=== PATIENT | female | born 1990 | race African-American/Black ===

== ENCOUNTER 2016-11-05 08:20 | Emergency (ER) | payer SELFPAY ==
[~2016-11-05] VITALS: Ht 165.1 cm; Wt 48.1 kg
[2016-11-05] MEDS ORDERED: NKM (08:48)
[2016-11-05] MEDS ORDERED: Tubing IV Cassette IV ONE (08:54)
[2016-11-05] MEDS ORDERED: Ketorolac 30mg Inj IV ONE (09:00)
[2016-11-05] MEDS ORDERED: Morphine Sulfate 4mg/ml Inj IVP ONE (09:00)
[2016-11-05 10:09] VITALS: BP 170/87
[2016-11-05 10:12] VITALS: BP 129/80
[2016-11-05 10:21] LABS: MEAN CORPUSCULAR HEMOGLOBIN 23.2 PG (27.0-31.0); MEAN CORPUSCULAR HGB CONC 30.9 G/DL (32.0-36.0); MEAN CORPUSCULAR VOLUME 75 FL (80-99); MEAN PLATELET VOLUME 8.3 FL (6.5-10.1); PLATELET COUNT 206 K/UL (150-450); RED BLOOD COUNT 4.05 M/UL (4.20-5.40); RED CELL DISTRIBUTION WIDTH 16.2 % (11.6-14.8); WHITE BLOOD COUNT 13.3 K/UL (4.8-10.8)
[2016-11-05 10:29] LABS: ALANINE AMINOTRANSFERASE 12 U/L (3-33); ALBUMIN/GLOBULIN RATIO 1.6 (1.0-2.7); ANION GAP 20 (5-15); ASPARTATE AMINO TRANSFERASE 24 U/L (5-40); CALCIUM 8.4 mg/dL (8.6-10.2); CARBON DIOXIDE 19 mEQ/L (20-30); CHLORIDE 101 mEQ/L (98-107); CREATININE 0.7 mg/dL (0.5-0.9); GLOMERULAR FILTRATION RATE > 60 mL/min (>60); HEMOLYSIS 1; LIPASE 11 U/L (< 60); POTASSIUM 3.4 mEQ/L (3.4-4.9); SODIUM 140 mEQ/L (135-145); TOTAL PROTEIN 6.7 g/dL (6.6-8.7)
[2016-11-05 10:45] LABS: ANISOCYTOSIS 1+; BAND NEUTROPHILS % (MANUAL) 1 % (0-8); BASOPHILS % (MANUAL) 0 % (0-2); EOSINOPHILS % (MANUAL) 0 % (0-3); HYPOCHROMASIA 1+; LYMPHOCYTES % (MANUAL) 5 % (20-45); MICROCYTES 1+; NEUTROPHILS % (MANUAL) 91 % (45-75); PLATELET ESTIMATE ADEQUATE; PLATELET MORPHOLOGY NORMAL; TOTAL CELLS COUNTED 100
[2016-11-05 11:45] LABS: APPEARANCE,URINE CLEAR; KETONES,URINE 4+ (NEGATIVE); LEUKOCYTE ESTERASE ,URINE 1+ (NEGATIVE); NITRITE,URINE NEGATIVE (NEGATIVE); PH,URINE 7 (4.5-8.0); PROTEIN,URINE 2+ (NEGATIVE); UROBILINOGEN,URINE NORMAL MG/DL (0.0-1.0)
[2016-11-05 11:59] LABS: BACTERIA,URINE FEW /HPF; SQUAMOUS EPITHELIAL CELL,UR FEW /LPF (NONE/OCC)
[2016-11-05 12:00] VITALS: BP 119/74
[2016-11-05 12:00] LABS: MUCUS,URINE FEW /LPF (NONE/OCC)
[2016-11-05 13:23] VITALS: BP 119/74
--- NOTE | 2016-11-05 14:20 | Diagnostic Imaging Report ---
Indication:Lower abdominal and pelvic pain Technique: Grayscale and duplex Doppler imaging of the pelvis performed utilizing a transabdominal scan and endovaginal scan. Comparison: None Findings: Uterus is retroverted but appears normal measuring 7.2 x 4.7 x 4 cm. Endometrium is about 10 mm. Mild free fluid noted. Both ovaries appear normal with Doppler evidence of blood flow. Probable aspiration noted involving the left ovary. Few follicles are present. The right ovary is 3.4 x 3.2 x 1.6 cm. Left ovary 3.3 x 3.3 x 1.6 cm. Impression: Negative exam
--- NOTE | 2016-11-06 13:47 | Emergency Room Report ---
History of Present Illness General Chief Complaint: Abdominal Pain Source: Patient Present Illness HPI 25 YO F presents with 10/10 lower midline pelvic pain, non-radiating since last night. Pain is constant. No assoc fever/chills, nausea/vomiting, diarrhea or urinary complaints or vaginal bleeding or discharge. Patient doubts . States every month around time of menstrual cycle, has similar episodes. She is about 2-3 days away from start of next cycle. Didnt take any OTC meds at home for pain. Specific request made here for dilaudid. States has had ruptured ovarian cysts before. Allergies: Coded Allergies: No Known Allergies (Unverified , 11/05/16) Patient History Past Medical History: none Past Surgical History: none Pertinent Family History: none Social History: Denies: alcohol use, drug use, smoking Now: No - 10/08/16 Immunizations: UTD Reviewed Nursing Documentation: PMH: Agreed, PSxH: Agreed Nursing Documentation-PMH Past Medical History: No Stated History Review of Systems All Other Systems: negative except mentioned in HPI Physical Exam Vital Signs Date Time Temp Pulse Resp B/P Pulse Ox O2 Delivery O2 Flow Rate FiO2 11/05/16 08:43 98.1 82 16 100/60 99 Room Air Sp02 EP Interpretation: reviewed, normal General Appearance: normal inspection, well appearing, no apparent distress, alert, GCS 15, non-toxic, other - Very dramatic, writhing on stretcher Head: normocephalic, atraumatic Eyes: bilateral eye EOMI, bilateral eye PERRL ENT: normal ENT inspection, hearing grossly normal, normal voice Neck: normal inspection, full range of motion, supple, no bony tend Respiratory: normal inspection, lungs clear, normal breath sounds, no respiratory distress, no retraction, no wheezing Cardiovascular #1: regular rate, rhythm, no edema Gastrointestinal: normal inspection, normal bowel sounds, non tender, soft, no guarding, no hernia Genitourinary: no CVA tenderness, other - Mild suprapubic ttp on exam Musculoskeletal: normal inspection, back normal, normal range of motion, Marcos' s Sign negative Neurologic: normal inspection, alert, oriented x3, responsive, bi technical lead III-XII nml as tested, motor strength/tone normal, speech normal Psychiatric: normal inspection, judgement/insight normal, mood/affect normal Skin: normal inspection, normal color, no rash Medical Decision Making Diagnostic Impression: Primary Impression: Ovarian cyst rupture Additional Impression: Ovarian cyst Qualified Codes: N83.201 - Unspecified ovarian cyst, right side ER Course 25 YO F with severe suprapubic pain. VSS. Afebrile. Urine preg negative UA negative for infection H&H stable. Mild leukocytosis likely stress reaction from pain Verbal report from optical engineering technician indicates "mild amount of free fluid, likely cyst rupture." Patient feels much better s/p IV anaglesia, IVF Utox + for cocaine, MJ. Advised patient to refrain from illicit drug use in the future Advised OTC ibuprofen for menstrual cycle pain in the future PMD followup as needed DC home Last Vital Signs Date Time Temp Pulse Resp B/P Pulse Ox O2 Delivery O2 Flow Rate FiO2 11/05/16 13:23 98.0 70 16 119/74 100 Room Air Status: improved Disposition: HOME, SELF-CARE Condition: Improved Patient Instructions: Ovarian Cyst, [id number] LYNDSEY JOSÉ M.D. Nov 06, 2016 13:47
== END 2016-11-05 13:23 | disposition home or self-care (01) ==
LOC: EMR 08:45
DX: N83.209 Unspecified ovarian cyst, unspecified side (principal); N85.4 Malposition of uterus; D72.829 Elevated white blood cell count, unspecified; F14.90 Cocaine use, unspecified, uncomplicated; F12.90 Cannabis use, unspecified, uncomplicated
CPT/HCPCS: 36415; 76830; 76856; 80053; 80300; 81003; 81025; 83690; 85007; 85025; 96361; 96374; 96375; 99284; J1885; J2270; J2405

== ENCOUNTER 2018-01-15 15:51 | Emergency (ER) | payer OTHER ==
[~2018-01-15] VITALS: Ht 165.1 cm; Wt 63.5 kg
--- NOTE | 2018-01-15 15:23 | Emergency Room Report ---
History of Present Illness General Chief Complaint: Abdominal pain Present Illness HPI 25 yo female patient presents to ER BIB ambulance complaining of abdominal pain x4 hours. Reports sharp abdominal pain. Reports nausea and vomiting during this time, denies blood in emesis. Reports diarrhea during this time, denies blood in stool. Reports no contacts with similar symptoms. Reports no recent travel outside [place]. Denies hx of abdominal surgery. Denies fever, chest pain, SOB, rash. Denies dysuria, hematuria, vaginal discharge. Reports LMP 2 days ago, normal for her. Reports hx of ovarian cyst. Patient reports smoking marijuana prior to onset of symptoms. Allergies: Coded Allergies: No Known Allergies (Unverified , 11/05/16) Patient History Past Medical History: see triage record Reviewed Nursing Documentation: PMH: Agreed; PSxH: Agreed Review of Systems All Other Systems: negative except mentioned in HPI Physical Exam Vital Signs Date Time Temp Pulse Resp B/P (MAP) Pulse Ox O2 Delivery O2 Flow Rate FiO2 01/15/18 15:18 97.8 88 18 156/81 99 Room Air 97.9 Sp02 EP Interpretation: reviewed, normal General Appearance: well appearing, alert, GCS 15, non-toxic, mild distress Head: normocephalic, atraumatic Eyes: bilateral eye normal inspection, bilateral eye PERRL ENT: hearing grossly normal, normal pharynx, no angioedema, normal voice, uvula midline, moist mucus membranes Neck: full range of motion Respiratory: lungs clear, normal breath sounds, no rhonchi, no respiratory distress, no accessory muscle use, no wheezing, speaking full sentences Cardiovascular #1: regular rate, rhythm, no edema Gastrointestinal: soft, no mass, non-distended, guarding, rebound, tenderness Musculoskeletal: back normal, digits/nails normal, gait/station normal, normal range of motion, non-tender Neurologic: alert, oriented x3, responsive, motor strength/tone normal, sensory intact Psychiatric: mood/affect normal Skin: no rash Lymphatic: no adenopathy Medical Decision Making PA Attestation Dr. Irving is my supervising Physician whom patient management has been discussed with. Diagnostic Impression: Primary Impression: Vomiting and diarrhea ER Course Pt. presents to the ED c/o abdominal pain and vomiting. Ddx considered but are not limited to UTI, cholelithiasis, cholecystitis, pancreatitis, appendicitis, gastroenteritis.. Patient reports pressure with palpation and pain with removal of hand during abdominal exam. Begin abdominal pain workup. Provided patient with pain medication. Vital signs: are WNL, pt. is afebrile ORDERS: CBC, CMP, Lipase, UA, Urine , CT abdomen pelvis, Zofran, Pepcid and pain medication. ER COURSE: Labs unremarkable. consistent with previous visit to ER. Hgb 8.9, consistent with previous visit and hx of recent LMP, does not require intervention at this time. Lipase WNL Serum HCG <1 negative for , OK for CT. CT negative for acute disease. Copy of report provided to patient. Discussed results with patient. Patient requesting food and water during ER stay. Informed patient symptoms may be related to viral cause or smoking marijuana. Instructed patient to discontinue marijuana use. Patient reports mild relief of pain symptoms with pain medication. Patient provided with IV fluids. Patient observed drinking water without throwing up. Urine sample provided. Patient provided with topical capsaicin. Urine results show, negative nitrite, moderate epithelial cell, patient asx, UTI unlikely, will not treat for UTI with abx. Urine negative. Discuss results with patient. Patient resting comfortably in bed nontoxic appearing, speaking in full sentences, patient OK for discharge to home. Stay hydrated. DISCHARGE: Rx provided for Tylenol. At this time pt. is stable for d/c to home. Patient resting comfortably, in no acute distress, nontoxic appearing, talking without difficulty. Rx provided to patient. Patient to take medications as instructed Will provide with patient care instructions and any necessary prescriptions. Care plan and follow-up instructions provided. Patient instructed to follow-up with primary care provider in 3 - 5 days. Patient questions asked and answered. Patient reports understanding and agreement to treatment plan. ER precautions given. Patient instructed to return to ER immediately for any new or worsening of symptoms including but not limited to increasing SOB, persistent fever, worsening of pain symptoms, intractable vomiting, blood in stool, urine, and/or emesis. Labs Test 01/15/18 15:54 01/15/18 20:07 White Blood Count 7.2 K/UL (4.8-10.8) Red Blood Count 3.89 M/UL (4.20-5.40) Hemoglobin 8.9 G/DL (12.0-16.0) Hematocrit 28.2 % (37.0-47.0) Mean Corpuscular Volume 73 FL (80-99) Mean Corpuscular Hemoglobin 23.0 PG (27.0-31.0) Mean Corpuscular Hemoglobin Concent 31.6 G/DL (32.0-36.0) Red Cell Distribution Width 15.6 % (11.6-14.8) Platelet Count 242 K/UL (150-450) Mean Platelet Volume 8.3 FL (6.5-10.1) Neutrophils (%) (Auto) 68.4 % (45.0-75.0) Lymphocytes (%) (Auto) 18.7 % (20.0-45.0) Monocytes (%) (Auto) 11.5 % (1.0-10.0) Eosinophils (%) (Auto) 0.2 % (0.0-3.0) Basophils (%) (Auto) 1.3 % (0.0-2.0) Sodium Level 146 MMOL/L (136-145) Potassium Level 3.4 MMOL/L (3.5-5.1) Chloride Level 108 MMOL/L (98-107) Carbon Dioxide Level 21 MMOL/L (21-32) Anion Gap 18 mmol/L (5-15) Blood Urea Nitrogen 6 mg/dL (7-18) Creatinine 0.8 MG/DL (0.55-1.30) Estimat Glomerular Filtration Rate > 60 mL/min (>60) Glucose Level 115 MG/DL (74-106) Calcium Level 9.4 MG/DL (8.5-10.1) Total Bilirubin 0.7 MG/DL (0.2-1.0) Aspartate Amino Transf (AST/SGOT) 30 U/L (15-37) Alanine Aminotransferase (ALT/SGPT) 24 U/L (12-78) Alkaline Phosphatase 55 U/L (46-116) Total Protein 8.0 G/DL (6.4-8.2) Albumin 4.1 G/DL (3.4-5.0) Globulin 3.9 g/dL Albumin/Globulin Ratio 1.1 (1.0-2.7) Lipase 98 U/L (73-393) Human Chorionic Gonadotropin, Quant < 1 mIU/mL (1-6) Urine Color Pale yellow Urine Appearance Slightly cloudy Urine pH 9 (4.5-8.0) Urine Specific Sloan 1.010 (1.005-1.035) Urine Protein 2+ (NEGATIVE) Urine Glucose (UA) Negative (NEGATIVE) Urine Ketones 4+ (NEGATIVE) Urine Occult Blood Negative (NEGATIVE) Urine Nitrite Negative (NEGATIVE) Urine Bilirubin Negative (NEGATIVE) Urine Urobilinogen Normal MG/DL (0.0-1.0) Urine Leukocyte Esterase 1+ (NEGATIVE) Urine RBC 0-2 /HPF (0 - 2) Urine WBC 5-10 /HPF (0 - 2) Urine Squamous Epithelial Cells Moderate /LPF (NONE/OCC) Urine Amorphous Sediment Many /LPF (NONE) Urine Bacteria Few /HPF (NONE) Urine HCG, Qualitative Negative (NEGATIVE) CT/MRI/US Diagnostic Results CT/MRI/US Diagnostic Results : Imaging Test Ordered: CT abdomen pelvis Impression Via [facility] Liver, gallbladder, pancreas and spleen are unremarkable. No hydronephrosis or obstructive renal calculi. No evidence of bowel obstruction or pneumoperitoneum. Appendix appears to be partially visualized in the right lower quadrant-pelvis. No definite findings of acute appendicitis. Small amount of pelvic free fluid which is nonspecific. Disposition: HOME, SELF-CARE Condition: Stable Scripts Acetaminophen* (TYLENOL EXTRA STRENGTH*) 500 Mg Tablet 500 MG ORAL Q8H PRN for Prn Headache/Temp > 101, #30 TAB 0 Refills Prov: Chi Ellis 01/15/18 Patient Instructions: Cannabis Use Disorder, Cyclic Vomiting Syndrome, Pediatric, Diarrhea, Adult, [id number], Nausea and Vomiting, Adult, Easy-to- Read Additional Instructions: Followup with primary care provider in 3 -5 days. Avoid spicy foods, avoid dairy foods. Followup with primary care provider for elevated blood pressure reading. BRAT diet: bananas, rice, apple sauce, toast. Do not use marijuana. Take medications as directed. Patient questions asked and answered. ER precautions given, patient instructed to return to ER immediately for any new or worsening of symptoms. Chi Ellis Jan 15, 2018 15:23
[2018-01-15 15:41] VITALS: BP 155/83
[~2018-01-15 15:51] MED LIST: Ketorolac 30mg Inj IM ONE; Morphine Sulfate 2mg/ml Inj IVP ONE; NKM
[2018-01-15 16:08] LABS: BASOPHILS % (AUTO) 1.3 % (0.0-2.0); EOSINOPHILS % (AUTO) 0.2 % (0.0-3.0); HEMATOCRIT 28.2 % (37.0-47.0); HEMOGLOBIN 8.9 G/DL (12.0-16.0); LYMPHOCYTES % (AUTO) 18.7 % (20.0-45.0); MEAN CORPUSCULAR VOLUME 73 FL (80-99); MONOCYTES % (AUTO) 11.5 % (1.0-10.0); NEUTROPHILS % (AUTO) 68.4 % (45.0-75.0); PLATELET COUNT 242 K/UL (150-450); RED BLOOD COUNT 3.89 M/UL (4.20-5.40); RED CELL DISTRIBUTION WIDTH 15.6 % (11.6-14.8); WHITE BLOOD COUNT 7.2 K/UL (4.8-10.8)
[2018-01-15 16:28] LABS: ANION GAP 18 mmol/L (5-15); BLOOD UREA NITROGEN 6 mg/dL (7-18); CALCIUM 9.4 MG/DL (8.5-10.1); CARBON DIOXIDE 21 MMOL/L (21-32); CHLORIDE 108 MMOL/L (98-107); CREATININE 0.8 MG/DL (0.55-1.30); POTASSIUM 3.4 MMOL/L (3.5-5.1); SODIUM 146 MMOL/L (136-145)
[2018-01-15 16:32] LABS: ALANINE AMINOTRANSFERASE 24 U/L (12-78); ALBUMIN 4.1 G/DL (3.4-5.0); ALBUMIN/GLOBULIN RATIO 1.1 (1.0-2.7); ALKALINE PHOSPHATASE 55 U/L (46-116); ASPARTATE AMINO TRANSFERASE 30 U/L (15-37); BILIRUBIN,TOTAL 0.7 MG/DL (0.2-1.0)
[2018-01-15] MEDS ORDERED: Capsaicin 0.075% Cream TOPIC SCH (20:15)
[2018-01-15 20:16] LABS: APPEARANCE,URINE SLIGHTLY CLOUDY; BILIRUBIN, URINE NEGATIVE (NEGATIVE); COLOR,URINE PALE YELLOW; GLUCOSE, URINE (UA) NEGATIVE (NEGATIVE); KETONES,URINE 4+ (NEGATIVE); LEUKOCYTE ESTERASE ,URINE 1+ (NEGATIVE); NITRITE,URINE NEGATIVE (NEGATIVE); PH,URINE 9 (4.5-8.0); PROTEIN,URINE 2+ (NEGATIVE); UROBILINOGEN,URINE NORMAL MG/DL (0.0-1.0)
[2018-01-15] MEDS ORDERED: TYLENOL EXTRA500 MG ORAL (20:40)
[2018-01-15 21:00] VITALS: BP 148/79
[2018-01-15 21:14] VITALS: BP 148/79
--- NOTE | 2018-01-16 17:13 | Diagnostic Imaging Report ---
Indication: Abnormal pain Technique: Continuous helical scanning was performed without any contrast material from the diaphragms through the pelvis were specific request of the ordering physician. Axial, sagittal, and coronal images were generated. Dose: Total Dose Length Product - DLP [address] Dose Index - CTDIvol(s) 8.12 mGy. Automated exposure control was utilized for dose reduction. Comparison: None Findings: The liver is unremarkable. The gallbladder is normal. The spleen is normal. The pancreas is unremarkable. Adrenal glands are normal. Kidneys are unremarkable. Aorta and inferior vena cava are normal caliber. Retroperitoneum is free of adenopathy. The appendix is not visualized. There is no inflammatory change to suggest appendicitis. The bowel is grossly normal. Is a small amount of fluid in the cul-de-sac. The uterus is unremarkable. Ovaries are not enlarged. The bladder was normal. Impression: Small amount of free pelvic fluid. This may be physiologic in this age group. RF appendix not visualized but no inflammatory change to suggest appendicitis. Otherwise negative. The above report is concordant with preliminary reading by [facility] minor difference. The CT scanner at [facility] is accredited by the [employer] and the scans are performed using protocols designed to limit radiation exposure to as low as reasonably achievable to attain images of sufficient resolution adequate for diagnostic evaluation.
== END 2018-01-15 21:15 | disposition home or self-care (01) ==
LOC: EDBD 15:51 → EMR 16:00
DX: R11.2 Nausea with vomiting, unspecified (principal); R10.9 Unspecified abdominal pain
CPT/HCPCS: 36415; 74176; 80053; 81003; 81025; 83690; 84702; 85025; 96372; 96374; 96375; 99284; J1885; J2270; J2405; S0028